=== PATIENT | female | born 2000 | race Caucasian/White ===

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

== ENCOUNTER 2022-05-29 06:06 | Day surgery (SDC) | payer BC ==
[2022-05-25 16:03] VITALS: BMI 29.3
[2022-05-29] MEDS ORDERED: Fentanyl 250 MCG/5 ML VIAL ONE (06:20)
[2022-05-29] MEDS ORDERED: Midazolam HCl 2 mg/2 ml Vial ONE ×2 (06:20→06:54)
[2022-05-29] MEDS ORDERED: Bacitracin Zinc Ointment 30 gm TUBE ONE (06:54)
[2022-05-29] MEDS ORDERED: EPINEPHrine 1 MG/ML AMP ONE (06:54)
[2022-05-29] MEDS ORDERED: Lidocaine 1% (PF) 30 ML VIAL ONE (06:54)
[2022-05-29] MEDS ORDERED: Oxymetazoline HCl 0.05% (30 ML BOT) ONE ×2 (06:54→07:14)
[2022-05-29] MEDS ORDERED: Sodium Chloride 0.9% 100 ML ONE (07:22)
[2022-05-29] MEDS ORDERED: CEFAZOLIN 2 GM VIAL ONE (07:22)
[2022-05-29] MEDS ORDERED: PROPOFOL 200 MG/20 ML VIAL ONE (07:32)
[2022-05-29] MEDS ORDERED: Lidocaine 1% PF 5 ML VIAL ONE (07:32)
[2022-05-29] MEDS ORDERED: Ondansetron PF 4 MG/2 ML Vial ONE ×2 (07:32→09:07)
[2022-05-29] MEDS ORDERED: Succinylcholine Chloride 100 MG/5 ML SYRINGE FS ONE (07:32)
[2022-05-29] MEDS ORDERED: Dexamethasone 20 MG/5 ML VIAL ONE (07:32)
[2022-05-29] MEDS ORDERED: Meperidine HCl/PF 25 MG/ML VIAL ONE (09:09)
== END 2022-05-29 09:45 | disposition home or self-care (01) ==
LOC: SDC 06:06
PROVIDERS: ATTEND Student in an Organized Health Care Education/Training Program
PROC: 09SL8ZZ Reposition Nasal Turbinate, Via Natural or Artificial Opening Endoscopic (ICD-10-PCS; principal; 2022-05-29)
PROC: 0NSB34Z Reposition Nasal Bone with Internal Fixation Device, Percutaneous Approach (ICD-10-PCS; principal; 2022-05-29)
DX: S02.2XXA Fracture of nasal bones, initial encounter for closed fracture (principal); J34.2 Deviated nasal septum; J34.3 Hypertrophy of nasal turbinates; G43.909 Migraine, unspecified, not intractable, without status migrainosus; I10 Essential (primary) hypertension; Z79.899 Other long term (current) drug therapy; X58.XXXA Exposure to other specified factors, initial encounter
CPT/HCPCS: J0171; J1100; J2001; J2175; J2250; J2405; J2704; J3010; J3490

== ENCOUNTER 2022-05-30 15:26 | Observation (INO) | payer BC ==
[~2022-05-30 15:26] MED LIST: Iopamidol-370 76% 500 ML 1 ML ONE
[2022-05-30] MEDS ORDERED: LORazepam 2 MG/ML SYR.(CARPUJECT) ONE ×2 (15:29→22:02)
[2022-05-30] MEDS ORDERED: levETIRAcetam 500 MG/5 ML VIAL ONE (15:34)
[2022-05-30 15:52] LABS: #Lymphocytes 3.2 thou/uL (1.20-3.40); #Monocytes 0.7 thou/uL (0.11-0.59); #Neutrophils 3.4 thou/uL (1.40-6.50); %Basophils 0.5 % (0.0-1.0); %Eosinophils 0.3 % (0.0-10.0); %Lymphocytes 43.2 % (28.0-48.0); %Monocytes 9.6 % (0.0-4.0); %Neutrophils 46.4 % (31.0-61.0); Hemoglobin 13.9 g/dL (12.0-16.0); Mean Corpuscular HGB CONC 33.3 g/dL (32.0-36.0); Mean Corpuscular Hemoglobin 27.6 pg (25.0-35.0); Mean Corpuscular Volume 82.9 fl (78.0-98.0); Mean Platelet Volume 8.7 fL (7.4-10.4); Platelet Count 276 10x3/uL (130-400); RBC Distribution Width 15.2 % (11.5-14.5); Red Blood Cell (RBC) Count 5.06 mill/uL (4.00-5.20); White Blood Cell (WBC) Count 7.4 10x3/uL (4.8-10.8)
[2022-05-30] MEDS ORDERED: Morphine 2 MG/ML VIAL ONE ×2 (16:15→20:55)
[2022-05-30 16:26] LABS: ALT (SGPT) Less than 7 U/L (8-55); AST (SGOT) 19 U/L (5-30); Albumin 4.5 g/dL (3.5-5.0); Alkaline Phosphatase 53 U/L (40-100); Anion Gap 11 mmol/L (10-20); BUN (Urea Nitrogen) 5 mg/dL (8.4-21.0); Bilirubin, Total 0.5 mg/dL (0.2-1.2); Calc. Creatinine Clearance 0 mL/min (70-130); Calcium 9.4 mg/dL (7.8-10.44); Carbon Dioxide 23 mmol/L (22-29); Chloride 110 mmol/L (98-107); Estimated GFR 104; Globulin 2.9 g/dL (2.4-3.5); Glucose 96 mg/dL (70-105); Lipase 21 U/L (8-78); Protein, Total 7.4 g/dL (6.0-8.3); Sodium 140 mmol/L (136-145)
[2022-05-30 17:14] LABS: Bacteria/HPF None Seen HPF (None Seen); Bilirubin Negative (Negative); Blood, Urine 3+ (Negative); Clarity Clear (Clear); Glucose, Urine (Dipstick) Normal (Negative); Ketone, Urine Negative (Negative); Leukocyte 75 Leu/uL (Negative); Nitrite Negative (Negative); Protein, Urine (Dipstick) Negative (Neg-Trace); Specific Gravity, Urine 1.011 (1.002-1.036); Urobilinogen Normal mg/dL (Less than 2)
[2022-05-30] MEDS ORDERED: cefTRIAXone\\ROCEPHIN 1 GM VIAL ONE (19:05)
[2022-05-30] MEDS ORDERED: Lorazepam 2 MG/ML VIAL SLOW IVP PRN (20:28)
[2022-05-30 21:04] LABS: Troponin I Less than 0.010 ng/mL (< 0.028)
[2022-05-31 00:26] LABS: Troponin I Less than 0.010 ng/mL (< 0.028)
[2022-05-31 03:25] VITALS: BMI 28.8
[2022-05-31] MEDS ORDERED: Acetaminophen 500 MG TAB PO SCH (04:45)
[2022-05-31 06:28] LABS: Magnesium 2.1 mg/dL (1.7-2.2)
[2022-05-31] MEDS ORDERED: levETIRAcetam 500 MG TAB PO SCH (08:00)
[2022-05-31] MEDS: buPROPion HCl 100 MG TAB PO SCH (08:50)
[2022-05-31] MEDS: lamoTRIgine 25 MG TAB PO SCH (08:50)
[2022-05-31] MEDS ORDERED: FLU VACC QS2022-23(6MOS UP)/PF 60 MCG/0.5 ML SYRINGE IM ONE (09:00)
[2022-05-31 09:15] LABS: #Eosinphils 0.1 thou/uL (0.0-0.7); #Lymphocytes 2.2 thou/uL (1.20-3.40); #Monocytes 0.5 thou/uL (0.11-0.59); #Neutrophils 3.8 thou/uL (1.40-6.50); %Basophils 0.3 % (0.0-1.0); %Lymphocytes 33.6 % (28.0-48.0); %Monocytes 7.9 % (0.0-4.0); %Neutrophils 57.2 % (31.0-61.0); Hemoglobin 13.6 g/dL (12.0-16.0); Mean Corpuscular HGB CONC 32.4 g/dL (32.0-36.0); Mean Corpuscular Hemoglobin 27.3 pg (25.0-35.0); Mean Corpuscular Volume 84.1 fl (78.0-98.0); Mean Platelet Volume 8.4 fL (7.4-10.4); Platelet Count 283 10x3/uL (130-400); Red Blood Cell (RBC) Count 4.99 mill/uL (4.00-5.20); White Blood Cell (WBC) Count 6.7 10x3/uL (4.8-10.8)
[2022-05-31 09:39] LABS: Troponin I Less than 0.010 ng/mL (< 0.028)
[2022-05-31] MEDS: Acetaminophen 325 MG TAB PO PRN ×2 (15:56→20:58)
[2022-05-31] MEDS ORDERED: ALPRAZolam 0.25 MG TAB PO PRN (17:35)
[2022-06-01] MEDS: Acetaminophen 325 MG TAB PO PRN ×2 (03:58→10:50)
[2022-06-01 05:48] LABS: Troponin I Less than 0.010 ng/mL (< 0.028)
[2022-06-01] MEDS: buPROPion HCl 100 MG TAB PO SCH (08:24)
[2022-06-01] MEDS: lamoTRIgine 25 MG TAB PO SCH (08:24)
[2022-06-01 11:48] VITALS: BP 107/61; TEMP 98.3
== END 2022-06-01 13:09 | disposition home or self-care (01) ==
LOC: ERS 15:26 → SUATTDRO 15:26 → NEURO 19:57
PROVIDERS: ADMIT Internal Medicine; ATTEND Internal Medicine
DX: R56.9 Unspecified convulsions (principal); F41.9 Anxiety disorder, unspecified; F31.9 Bipolar disorder, unspecified; I47.9 Paroxysmal tachycardia, unspecified; R07.9 Chest pain, unspecified; G43.909 Migraine, unspecified, not intractable, without status migrainosus; I08.2 Rheumatic disorders of both aortic and tricuspid valves; Z79.899 Other long term (current) drug therapy
CPT/HCPCS: 36415; 36416; 70496; 71045; 71275; 80053; 80175; 81003; 83690; 83735; 84146; 84443; 84484; 85025; 85379; 93306; 94760; 95712; 95819; 95957; 96372; G0378; J0696; J1650; J1953; J2060; J2272; Q9967

== ENCOUNTER 2022-06-06 14:03 | Emergency (ER) | payer BC ==
[2022-06-06] MEDS ORDERED: Acetaminophen 500 MG TAB ONE (14:43)
== END 2022-06-06 15:14 | disposition home or self-care (01) ==
LOC: ERS 14:03
DX: R56.9 Unspecified convulsions (principal)
CPT/HCPCS: 93005

== ENCOUNTER 2022-07-06 12:00 | Outpatient (CLI) | payer BC | END 2022-07-06 12:01 | disposition home or self-care (01) | LOC: SCSMRI 12:00 | PROVIDERS: ATTEND Psychiatry & Neurology Neurology | DX: R56.9 Unspecified convulsions (principal) | CPT/HCPCS: 70553 ==

== ENCOUNTER 2022-11-22 08:47 | Outpatient (CLI) | payer BC | END 2022-11-22 08:48 | disposition home or self-care (01) | LOC: BICULT 08:47 | PROVIDERS: ATTEND Nurse Practitioner Family | DX: N63.15 Unspecified lump in the right breast, overlapping quadrants (principal); N63.25 Unspecified lump in the left breast, overlapping quadrants ==